=== PATIENT | male | born 1995 | race Caucasian/White ===

== ENCOUNTER 2021-03-15 23:39 | Emergency (ER) | payer SELFPAY ==
[~2021-03-15] VITALS: Ht 182.9 cm; Wt 57.1 kg
[2021-03-16 00:04] VITALS: BP 116/75
[2021-03-16] MEDS ORDERED: EMTR1TAB11 MT (00:38)
== END 2021-03-16 00:45 | disposition home or self-care (01) ==
LOC: ER 23:39
DX: Z20.6 Contact with and (suspected) exposure to human immunodeficiency virus [HIV] (principal); Z88.0 Allergy status to penicillin; Z98.890 Other specified postprocedural states
CPT/HCPCS: 99283